=== PATIENT | male | born 1950 | race Caucasian/White ===

== ENCOUNTER 2016-09-19 05:58 | Emergency (ER) | payer BC ==
[2016-09-19 05:37] LABS: BASOPHILS 0.5 %; BASOPHILS ABSOLUTE 0.04 10/3/uL (0.0-0.16); EOSINOPHILS 2.5 %; EOSINOPHILS ABSOLUTE 0.19 10/3/uL (0.0-0.53); IMMATURE GRANULOCYTES 0.4 %; IMMATURE GRANULOCYTES ABSOLUTE 0.03 10/3/uL (0.0-0.11); LYMPHOCYTES 36.1 %; LYMPHOCYTES ABSOLUTE 2.75 10/3/uL (0.67-4.30); MEAN CORPUS HGB CONC 33.5 g/dL (32.0-36.0); MEAN CORPUSCULAR HEMOGLOB 31.1 pg (26.0-34.0); MEAN CORPUSCULAR VOLUME 92.9 fL (80-100); MEAN PLATELET VOLUME 10.2 fL (9.2-13.0); MONOCYTES 7.3 %; MONOCYTES ABSOLUTE 0.56 10/3/uL (0.21-1.20); NEUTROPHILS 53.2 %; NEUTROPHILS ABSOLUTE 4.05 10/3/uL (2.02-8.40); PLATELET COUNT 217 10/3/uL (150-400); RBC DISTRIBUTION WIDTH 13.2 % (12.0-16.0)
[2016-09-19 05:38] LABS: HEMATOCRIT 48.7 % (40.0-51.0); HEMOGLOBIN 16.3 g/dL (13.6-17.8); MANUAL DIFF NO %; RED CELL COUNT 5.24 10/6/uL (4.7-6.1); WHITE BLOOD CELLS 7.6 10/3/uL (4.5-10.5)
[2016-09-19 05:44] LABS: PARTIAL THROMBO TIME 26.4 SEC (22.5-37.2); PROTIME (NOT ORD) 12.8 SEC (12.0-14.5)
[2016-09-19 05:56] LABS: CALCIUM, SERUM 9.1 MG/DL (8.5-10.4); CHEST PAIN PROFILE TAT 0 Hrs 24 Mins; CHLORIDE, SERUM 104 MMOL/L (96-112); CO2 (CARBON DIOXIDE) 28 MMOL/L (24-34); SODIUM, SERUM 142 MMOL/L (135-148); TROPONIN I <0.02 NG/ML (<0.05)
[~2016-09-19 05:58] MED LIST: ALLEGRA180 PO; ASAB PO; CATAFLAM50 MG PO; LOP50 PO; NASONEX NAS; NEUR300 PO; OSTEO BI-FLEX1 EACH PO; SYN075 PO; VASOTEC20 MG PO; VASOTEC5 PO; ZIPSOR25 MG PO; ZOCOR40 PO
[2016-09-19 06:02] LABS: BUN (BLOOD UREA NITROGEN) 16 MG/DL (6-23); CREATININE 1.48 MG/DL (0.70-1.30); GFR AFRICAN AMERICAN 56 ML/MIN (>=60); GFR NON AFRICAN AMERICAN 49 ML/MIN (>=60); GLUCOSE, SERUM 123 MG/DL (60-99)
[2016-09-19 06:18] LABS: INFLUENZA A SCREEN POSITIVE (NEGATIVE); INFLUENZA B SCREEN NEGATIVE (NEGATIVE)
[2017-02-01] MEDS ORDERED: AXIRON (12:44)
[2017-02-01] MEDS ORDERED: HYDROCHLOROT12.5 MG PO (12:45)
[2017-02-04] MEDS ORDERED: T PO (09:24)
[2017-02-04] MEDS ORDERED: CATAFLAM PO (09:25)
[2017-02-04] MEDS ORDERED: FLECAINIDE50 MG PO (17:40)
[2017-02-07] MEDS ORDERED: FLECAINIDE150 MG PO (00:06)
[2017-02-07] MEDS ORDERED: SYN075 PO (00:06)
[2017-02-07] MEDS ORDERED: NEUR300 PO (00:06)
[2017-02-07] MEDS ORDERED: TESTOST CYP100 MG/ML IM (00:07)
[2017-02-07] MEDS ORDERED: HCTZ12.5 PO (00:09)
[2017-02-07] MEDS ORDERED: NASONEX NAS (00:11)
[2017-02-07] MEDS ORDERED: ALLEGRA180 PO (00:11)
[2017-02-07] MEDS ORDERED: VASOTEC20 MG PO (00:11)
[2017-02-07] MEDS ORDERED: LIDODERM TOP (00:12)
[2017-02-07] MEDS ORDERED: DICLOFENAC POTASSIUM PO (00:13)
[2017-02-07] MEDS ORDERED: ZOCOR40 PO (00:16)
[2017-02-07] MEDS ORDERED: X25 PO (16:49)
== END 2016-09-19 07:01 | disposition home or self-care (01) ==
LOC: ER 05:58
PROVIDERS: Specialist
DX: I47.1 Supraventricular tachycardia (principal); J10.1 Influenza due to other identified influenza virus with other respiratory manifestations; N28.9 Disorder of kidney and ureter, unspecified; I10 Essential (primary) hypertension; Z79.899 Other long term (current) drug therapy
CPT/HCPCS: 71010; 80048; 83735; 84484; 85025; 85610; 85730; 87804; 93005; 96374; 99285; J0153